=== PATIENT | female | born 1995 ===

== ENCOUNTER 2017-05-20 20:54 | Emergency (ER) | payer OTHER ==
[2017-05-20 21:25] VITALS: BP 142/80; PULSE 97; RESP 16; TEMP 98.6; O2SAT 99
[2017-05-20] MEDS ORDERED: Sodium Chloride 0.9% 1,000 ML IV STA (21:41)
--- NOTE | 2017-05-20 21:45 | ED PDOC ---
HPI: Female Pain Time Seen by Provider: 05/20/17 21:30 Chief Complaint (Nursing): Female Genitourinary Chief Complaint (Provider): vaginal bleeding, pelvic cramping History Per: Patient History/Exam Limitations: no limitations Onset/Duration Of Symptoms: Days (3 weeks) Current Symptoms Are (Timing): Still Present Quality Of Discomfort: Cramping Additional History Per: Patient Additional Complaint(s): 21 y/o female presents for eval of vaginal bleeding x 3 weeks. Associated pelvic cramping. Patient states she had not gotten her menstrual period for 2 years, saw her Colliery Clerk on 04/24 and was started on 10 days of Provera. On 05/04 she got her period and has not stopped bleeding since then. Associated fatigue. Denies headache, dizziness, nausea/vomiting, chest pain, shortness of breath, palpitations, urinary symptoms. Past Medical History Reviewed: Historical Data, Nursing Documentation, Vital Signs Vital Signs: Last Vital Signs Temp 98.6 F 05/20/17 21:22 Pulse 97 H 05/20/17 21:22 Resp 16 05/20/17 21:22 BP 142/80 05/20/17 21:22 Pulse Ox 99 05/20/17 21:22 - Medical History PMH: Asthma - Surgical History Surgical History: No Surg Hx - Family History Family History: States: Unknown Family Hx - Home Medications Home Medications: Ambulatory Orders Medication Instructions Recorded Naproxen [Naprosyn] 500 mg PO BID #20 tablet 11/18/15 Naproxen [Naprosyn] 500 mg PO Q12 PRN #20 tablet 05/21/17 - Allergies Allergies/Adverse Reactions: Allergies Allergy/AdvReac Type Severity Reaction Status Date / Time No Known Allergies Allergy Verified 11/18/15 02:19 Review of Systems ROS Statement: Except As Marked, All Systems Reviewed And Found Negative Genitourinary Female: Positive for: Vaginal Bleeding, Pelvic Pain Physical Exam - Reviewed Nursing Documentation Reviewed: Yes Vital Signs Reviewed: Yes - Physical Exam Appears: Positive for: Well, Non-toxic, No Acute Distress Head Exam: Positive for: ATRAUMATIC, NORMAL INSPECTION, NORMOCEPHALIC Skin: Positive for: Normal Color Eye Exam: Positive for: Normal appearance ENT: Positive for: Normal ENT Inspection Cardiovascular/Chest: Positive for: Regular Rate, Rhythm Respiratory: Positive for: Normal Breath Sounds Gastrointestinal/Abdominal: Positive for: Tenderness (diffuse lower abdominal discomfort to palpation) Pelvic Exam: Positive for: External Exam Normal, No Cerv. 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 Negative for: Leukocyte Esterase, Nitrate, Ketones, Glucose - ECG O2 Sat by Pulse Oximetry: 99 - Progress ED Course And Treament: labs, u/s, IV fluids, IV toradol EXAM: US Pelvis, Transvaginal CLINICAL HISTORY: 21 years old, female; Signs and symptoms; Menstruation abnormalities; Excessive menstruation; With irregular cycle; Additional info: Cramping, vaginal bleeding x 3wks after provera TECHNIQUE: Real-time transvaginal pelvic ultrasound (complete) with image documentation. Transvaginal imaging was used for better evaluation of the endometrium and adnexa. COMPARISON: No relevant prior studies available. FINDINGS: Uterus/cervix: Unremarkable in echogenicity and size measuring 8.5 x 4.1 x 4.7 cm. Normal endometrial stripe thickness, measuring 5 mm. No myometrial mass. Right ovary: Unremarkable in echogenicity and size measuring 2.6 x 2.6 x 2.3 cm. No mass. Normal blood flow. Left ovary: Unremarkable in echogenicity and size measuring 2.6 x 2.3 x 2.5 cm. No mass. Normal blood flow. Free fluid: No free fluid. IMPRESSION: Unremarkable sonographic evaluation of the pelvis, as detailed above. Patient educated on findings, advised to follow up with Colliery Clerk 2-3 days. Return to ED for worsening/concerning symptoms. Disposition - Clinical Impression Clinical Impression: Vaginal bleeding, abnormal - Patient ED Disposition Is Patient to be Admitted: No Counseled Patient/Family Regarding: Studies Performed, Diagnosis, Need For Followup, Rx Given - Disposition Disposition: Routine/Home Disposition Time: 00:18 Condition: IMPROVED Prescriptions: Naproxen [Naprosyn] 500 mg PO Q12 PRN #20 tablet PRN Reason: Pain, Moderate (4-7) Instructions: Dysfunctional Uterine Bleeding (ED)
[2017-05-20 22:54] LABS: BASO # 0.1 K/uL (0.0-0.2); BASO % 0.4 % (0.0-2.0); EOS % 0.4 % (0.0-4.0); HEMOGLOBIN 12.9 g/dL (12.0-16.0); LYMPH # 3.2 K/uL (1.0-4.3); LYMPH % 23.2 % (20.0-40.0); MEAN CELL VOLUME 84.4 fl (81.0-99.0); MEAN CORPUSCULAR HGB CONC 34.3 g/dL (33.0-37.0); MEAN PLATELET VOLUME 9.4 fl (7.2-11.7); MONO # 0.7 K/uL (0.0-0.8); MONO % 5.4 % (0.0-10.0); NEUT # 9.6 K/uL (1.8-7.0); NEUT % 70.6 % (50.0-75.0); RBC 4.44 Mil/uL (3.80-5.20); RED CELL DISTRIBUTION WIDTH 13.2 % (11.5-14.5); WHITE BLOOD COUNT 13.6 K/uL (4.8-10.8)
[2017-05-20 23:04] LABS: ALB/GLOB RATIO 1.3 (1.0-2.1); ALBUMIN 4.7 g/dL (3.5-5.0); ALT/SGPT 54 U/L (9-52); AST/SGOT 33 U/L (14-36); BLOOD UREA NITROGEN 12 mg/dl (7-17); CALCIUM 9.3 mg/dL (8.4-10.2); GFR AFRICAN-AMERICAN > 60; GFR NON-AFRICAN AMERICAN > 60
--- NOTE | 2017-05-20 23:23 | US ---
EXAM: US Pelvis, Transvaginal CLINICAL HISTORY: 21 years old, female; Signs and symptoms; Menstruation abnormalities; Excessive menstruation; With irregular cycle; Additional info: Cramping, vaginal bleeding x 3wks after provera TECHNIQUE: Real-time transvaginal pelvic ultrasound (complete) with image documentation. Transvaginal imaging was used for better evaluation of the endometrium and adnexa. COMPARISON: No relevant prior studies available. FINDINGS: Uterus/cervix: Unremarkable in echogenicity and size measuring 8.5 x 4.1 x 4.7 cm. Normal endometrial stripe thickness, measuring 5 mm. No myometrial mass. Right ovary: Unremarkable in echogenicity and size measuring 2.6 x 2.6 x 2.3 cm. No mass. Normal blood flow. Left ovary: Unremarkable in echogenicity and size measuring 2.6 x 2.3 x 2.5 cm. No mass. Normal blood flow. Free fluid: No free fluid. IMPRESSION: Unremarkable sonographic evaluation of the pelvis, as detailed above.
[2017-05-20] MEDS ORDERED: Potassium Chloride 20 mEq ER Tab PO ONE (23:39)
[2017-05-21] MEDS ORDERED: Potassium Chloride 20 mEq ER Tab PO ONE (00:12)
== END 2017-05-21 00:20 | disposition home or self-care (01) ==
LOC: H.ER 20:54
DX: N92.0 Excessive and frequent menstruation with regular cycle (principal); N93.9 Abnormal uterine and vaginal bleeding, unspecified
CPT/HCPCS: 76830; 80053; 81025; 85025; 86850; 86900; 96360; 99282; J1885; J7040